=== PATIENT | male | born 1970 | race Caucasian/White ===

== ENCOUNTER 2017-09-11 22:26 | Emergency (ER) | payer MEDICAID | END 2017-09-12 02:32 | disposition home or self-care (01) | LOC: FTE 22:26 | DX: L02.31 Cutaneous abscess of buttock (principal) | CPT/HCPCS: 99284; Z7502 ==

== ENCOUNTER 2017-09-12 08:55 | Emergency (ER) | payer MEDICAID ==
[2017-09-12] MEDS: TRIMETHOPRIM/SULFAMETHOX (DS) TAB PO (10:24)
[2017-09-12] MEDS: CEPHALEXIN 500 MG CAP PO (10:24)
== END 2017-09-12 11:10 | disposition home or self-care (01) ==
LOC: FTE 08:55
DX: K61.1 Rectal abscess (principal); E11.9 Type 2 diabetes mellitus without complications
CPT/HCPCS: 99284; Z7502